=== PATIENT | male | born 1930 | race Caucasian/White ===

== ENCOUNTER → 2017-05-14 | Outpatient (CLI) | payer MEDICARE, BC ==
[~2017-05-14] MED LIST: Augmentin 875-1 EACH PO; FURO40 PO; Isosorbide Mono60 MG PO; LISI20 PO; OXYC5; Rapaflo8 MG PO
== END | disposition home or self-care (01) ==
LOC: LAB SHORT 07:24 → PLD 07:24
DX: D48.5 Neoplasm of uncertain behavior of skin (principal)
CPT/HCPCS: 88305